=== PATIENT | female | born 1985 | race Two or more races ===

== ENCOUNTER 2017-12-05 09:15 | Inpatient (IN) | payer OTHER ==
[~2017-12-05 09:15] MED LIST: ADVIL200 M1; ALBUTEROL; CLARINEX5 MG/TAB; DICY20TA; ZANTAC300 MG
[2017-12-05] MEDS ORDERED: NAPROXEN375 MG PO (10:38)
[2017-12-13] MEDS ORDERED: CODE1TAB37 PO (09:06)
== END 2017-12-13 11:40 | disposition home or self-care (01) | DRG 743 ==
LOC: EDSTATUS 09:15 → O/R 12-11 08:30 → SURH 12-11 08:30 → CIR.AMB 12-11 09:15 → EDSTATUS 12-11 09:15 → SURH 12-11 11:00
PROVIDERS: Obstetrics & Gynecology
PROC: 0USG7ZZ Reposition Vagina, Via Natural or Artificial Opening (ICD-10-PCS; 2017-12-11)
PROC: 0TJB8ZZ Inspection of Bladder, Via Natural or Artificial Opening Endoscopic (ICD-10-PCS; 2017-12-11)
PROC: 0UT97ZZ Resection of Uterus, Via Natural or Artificial Opening (ICD-10-PCS; principal; 2017-12-11 11:00)
PROC: 0UQF7ZZ Repair Cul-de-sac, Via Natural or Artificial Opening (ICD-10-PCS; 2017-12-11 11:00)
DX: D25.1 Intramural leiomyoma of uterus (principal); N94.5 Secondary dysmenorrhea; N81.11 Cystocele, midline